=== PATIENT | female | born 1960 | race Caucasian/White ===

== ENCOUNTER 2025-05-03 07:34 | Outpatient (CLI) | payer MEDICARE, OTHER ==
[2025-05-03 08:09] LABS: MEAN PLATELET VOLUME 8.1 FL (7.4-10.4); RED CELL DISTRIBUTION WIDTH 13.8 % (11.5-14.5)
[2025-05-03 08:21] LABS: LACTATE DEHYDROGENASE 181 U/L (81-234)
[2025-05-04 11:12] LABS: IMMUNOGLOBULIN G, QN, SERUM 727 mg/dL (586-1602); IMMUNOGLOBULIN M, QN, SERUM 34 mg/dL (26-217)
== END 2025-05-03 23:59 | disposition home or self-care (01) ==
LOC: LAB 07:34
PROVIDERS: ATTEND Physician Assistant
DX: D72.820 Lymphocytosis (symptomatic) (principal); B02.9 Zoster without complications
CPT/HCPCS: 36415; 82784; 83615; 84550; 85025; 85651; 86140; 87389